=== PATIENT | male | born 1980 | race Caucasian/White ===

== ENCOUNTER 2017-09-01 14:35 | Emergency (ER) | payer MEDICARE, OTHER ==
[2017-09-01 14:40] VITALS: RESP 18
[2017-09-01] MEDS ORDERED: PENICILLIN VK 500MG STARTER 4 TAB BTL PO STA (15:15)
--- NOTE | 2017-09-01 15:16 | ED ---
ENT HPI - General Chief complaint: Dental/Oral Stated complaint: Dental pain Time Seen by Provider: 09/01/17 14:42 Source: patient, RN notes reviewed, old records reviewed Mode of arrival: ambulatory Limitations: no limitations - History of Present Illness Initial comments: This is a 37-year-old male with a history of mental disability. He presents emergency department today with chief complaint of a loose tooth. Patient appears quite unkempt. He has rash over his body. He reports that he was told that that was because the skin over grew as a baby. He is quite odorous. He reports that he lives by himself. He has no family members or friends. He states that he has no doctor. Patient denies any recent fever, chills, shortness of breath, chest pain, back pain, abdominal pain, nausea vomiting, numbness or tingling, dysuria or hematuria, constipation or diarrhea, headaches or visual changes, or any other current symptoms - Related Data Previous Rx's Medication Instructions Recorded Ibuprofen [Motrin] 600 mg PO Q8HR PRN #20 tab 09/01/17 Penicillin V Potassium [Pen Vee K] 500 mg PO QID #40 tablet 09/01/17 amLODIPine [Norvasc] 5 mg PO DAILY #5 tab 09/01/17 Allergies Allergy/AdvReac Type Severity Reaction Status Date / Time No Known Allergies Allergy Verified 09/01/17 15:03 Review of Systems ROS Statement: Those systems with pertinent positive or pertinent negative responses have been documented in the HPI. ROS Other: All systems not noted in ROS Statement are negative. Past Medical History Past Medical History: No Reported History History of Any Multi-Drug Resistant Organisms: None Reported Past Surgical History: No Surgical Hx Reported Past Psychological History: No Psychological Hx Reported Smoking Status: Never smoker Past Alcohol Use History: None Reported Past Drug Use History: None Reported General Exam - General Exam Comments Initial Comments: Patient is a 37-year-old male. Patient is alert and oriented. Does not appear to be in any acute distress. Limitations: no limitations General appearance: alert, in no apparent distress, obese Head exam: Present: atraumatic, normocephalic, normal inspection Eye exam: Present: normal appearance, PERRL, EOMI. Absent: scleral icterus, conjunctival injection, periorbital swelling ENT exam: Present: normal exam, mucous membranes moist. Absent: normal oropharynx (Patient has very poor dentition. Reproducible tenderness over tooth #6. He appears to have his deciduous teeth behind his adult teeth. Multiple dental caries.) Neck exam: Present: normal inspection. Absent: tenderness, meningismus, lymphadenopathy Extremities exam: Present: normal inspection, full ROM, normal capillary refill. Absent: tenderness, pedal edema, joint swelling, calf tenderness Back exam: Present: normal inspection Neurological exam: Present: alert, oriented X3, CN II-XII intact Psychiatric exam: Present: normal affect, normal mood Skin exam: Present: warm, dry, intact, normal color, rash (Erythematous rash over her chest recent abdomen with excoriations.) Course Vital Signs 09/01/17 14:36 Temperature 97.2 F L Pulse Rate 87 Respiratory 18 Rate Blood Pressure 187/112 O2 Sat by Pulse 98 Oximetry Medical Decision Making - Medical Decision Making 37-year-old male presents to light and dental pain. He has not seen a dentist. He has evidence of very poor dentition. He is quite unkempt. Malodorous. He does not have a doctor. Erosive elevated blood pressure, Patient given 1 mg of clonidine. Patient does have reproducible tenderness over the tooth #6 and 7. No drainable abscess noted at this time. His hydration we'll put the Patient on antibiotics for dental infection. I discussed that he spoke with dentist. Given a referral for dental clinic. All questions answered return parameters were discussed. Disposition Clinical Impression: Dental infection, Hypertension Disposition: HOME SELF-CARE Condition: Good Instructions: Toothache (ED), Hypertension (ED) Additional Instructions: Patient advised to follow-up with the dental clinic. Take antibiotics as prescribed. Return to emergency department if any alarming signs or symptoms occur. Take Motrin or Tylenol for pain. Prescriptions: amLODIPine [Norvasc] 5 mg PO DAILY #5 tab Ibuprofen [Motrin] 600 mg PO Q8HR PRN #20 tab PRN Reason: Pain Penicillin V Potassium [Pen Vee K] 500 mg PO QID #40 tablet Is patient prescribed a controlled substance at d/c from ED?: No When asked, does pt state using other controlled substances?: No If prescribed controlled substance>3 days was MAPS reviewed?: No If opioid is for acute pain is fill amount 7 days or less?: No If Rx opioid, was Start Talking consent form obtained?: No Referrals: None,Stated [Primary Care Provider] - 1-2 days Luisa Walters MD [STAFF PHYSICIAN] - 1-2 days Time of Disposition: 15:13
[2017-09-01] MEDS: cloNIDine HCL 0.1 MG TAB PO STA ×2 (15:24→15:26)
[2017-09-01] MEDS ORDERED: cloNIDine HCL 0.1 MG TAB PO STA (15:26)
[2017-09-01 16:06] VITALS: BP 158/98; PULSE 90; TEMP 98
== END 2017-09-01 16:09 | disposition home or self-care (01) ==
LOC: EC 14:35
DX: K04.7 Periapical abscess without sinus (principal); I10 Essential (primary) hypertension; K02.9 Dental caries, unspecified; R21 Rash and other nonspecific skin eruption; R46.0 Very low level of personal hygiene; E66.9 Obesity, unspecified; Z68.41 Body mass index [BMI] 40.0-44.9, adult
CPT/HCPCS: 99283

== ENCOUNTER 2019-08-15 22:21 | Emergency (ER) | payer MEDICARE, OTHER ==
[2019-08-15 22:28] VITALS: BP 171/98; TEMP 98.6
[2019-08-15] MEDS ORDERED: LIDOCAINE 1% INJ 10MG/ML (20 ML MDV) SQ ONE (22:45)
[2019-08-15] MEDS ORDERED: IBUPROFEN 600 MG TAB PO STA (22:46)
[2019-08-15] MEDS ORDERED: DIPH,PERTUS(ACELL)TETVAC-LF 0.5 ML VIAL IM ONE (22:46)
--- NOTE | 2019-08-15 23:08 | ED ---
Wound/Laceration HPI - General Chief Complaint: Wound/Laceration Stated Complaint: Finger Laceration Time Seen by Provider: 08/15/19 22:31 Source: patient, family Mode of arrival: ambulatory Limitations: no limitations - History of Present Illness Initial Comments: 39-year-old male patient presents to the emergency department today for evaluation of laceration to the right middle finger. Patient states that he was using a brand-new knife from the store when he slipped and cut his finger. He denies any difficulty with range of motion, numbness, or tingling to the finger. He is unsure when his last tetanus vaccine was administered. Denies any other injuries.Patient denies any headache, neck pain, back pain, chest pain, shortness of breath, dizziness, weakness, abdominal pain, nausea, vomiting, or difficulties with bowel movements or urination. - Related Data Previous Rx's Medication Instructions Recorded Ibuprofen [Motrin] 600 mg PO Q8HR PRN #20 tab 09/01/17 Penicillin V Potassium [Pen Vee K] 500 mg PO QID #40 tablet 09/01/17 amLODIPine [Norvasc] 5 mg PO DAILY #5 tab 09/01/17 Allergies Allergy/AdvReac Type Severity Reaction Status Date / Time No Known Allergies Allergy Verified 08/15/19 22:27 Review of Systems ROS Statement: Those systems with pertinent positive or pertinent negative responses have been documented in the HPI. ROS Other: All systems not noted in ROS Statement are negative. Past Medical History Past Medical History: No Reported History Additional Past Medical History / Comment(s): developmentally delayed History of Any Multi-Drug Resistant Organisms: None Reported Past Surgical History: No Surgical Hx Reported Past Psychological History: No Psychological Hx Reported Smoking Status: Never smoker Past Alcohol Use History: None Reported Past Drug Use History: None Reported General Exam Limitations: no limitations General appearance: alert, in no apparent distress, other (Physical well- developed, well-nourished adult male patient in no acute distress. Vital signs upon presentation temperature 98.6F, pulse 111, respirations 20, blood pressure 171/98, pulse ox 97% on room air.) Respiratory exam: Present: normal lung sounds bilaterally. Absent: respiratory distress, wheezes, rales, rhonchi, stridor Cardiovascular Exam: Present: regular rate, normal rhythm, normal heart sounds. Absent: systolic murmur, diastolic murmur, rubs, gallop, clicks Extremities exam: Present: full ROM, normal capillary refill, other (3 cm laceration noted to the lateral aspect of the right distal middle finger. Bleeding controlled. Skin is otherwise pink, warm, dry. Cap refills less than 3 seconds. Radial pulses are 2+. Patient has full range of motion of the finger with and without resistance.). Absent: normal inspection, tenderness, pedal edema, joint swelling, calf tenderness Neurological exam: Present: alert, oriented X3, CN II-XII intact Psychiatric exam: Present: normal affect, normal mood Skin exam: Present: warm, dry, intact, normal color. Absent: rash Course Vital Signs 08/15/19 08/15/19 22:22 23:08 Temperature 98.6 F Pulse Rate 111 H 86 Respiratory 20 17 Rate Blood Pressure 171/98 O2 Sat by Pulse 97 99 Oximetry Procedures - Laceration Laceration #1 Consent Obtained: verbal consent Indication: laceration Site: hand (Right middle finger) Size (cm): 3 Depth: simple, single layer Anesthetic Used: lidocaine 1% Anesthesia Technique: local infiltration Amount (mls): 2 Pre-repair: irrigated extensively Type of Sutures: nylon Size of Sutures: 5-0 Number of Sutures: 7 Technique: simple, interrupted Patient Tolerated Procedure: well, no complications Medical Decision Making - Medical Decision Making 39-year-old male patient presents to the emergency department today for evaluation of laceration to the right middle finger. Physical examination did reveal a 3 cm laceration noted to the lateral aspect of the distal right middle finger. Bleeding was controlled. Laceration was repaired as documented. Patient's blood pressure noted to be elevated while in the department. Patient is currently asymptomatic. He'll be discharged with recommendation for follow- up with primary care physician to discuss medication regimen. He is instructed regarding wound care and signs or symptoms of infection. He is instructed to come back in 7 days to have the stitches removed. Return parameters were discussed in detail. He verbalizes understanding and agrees with this plan. Disposition Clinical Impression: Laceration of right middle finger Disposition: HOME SELF-CARE Condition: Good Instructions (If sedation given, give patient instructions): Care For Your Stitches (ED), Finger Laceration (ED), Hypertension (ED) Additional Instructions: Keep wound clean and dry. Cleanse twice daily with warm water and antibacterial soap. Do not submerge the finger in water, showers are okay. Return if you develop redness, swelling, or increased pain to the finger. Return in 7 days to have the stitches taken out. Follow-up with your primary care physician for recheck in 1-2 days. One has been recommended for you, you need to have your blood pressure rechecked. Return to the emergency department immediately for any new, worsening, or concerning symptoms. Is patient prescribed a controlled substance at d/c from ED?: No Referrals: Heydi Tolliver MD [REFERRING] - 1-2 days Time of Disposition: 23:08
[2019-08-15 23:39] VITALS: PULSE 86; RESP 17
== END 2019-08-15 23:50 | disposition home or self-care (01) ==
LOC: EC 22:21
DX: S61.212A Laceration without foreign body of right middle finger without damage to nail, initial encounter (principal); R03.0 Elevated blood-pressure reading, without diagnosis of hypertension; Z23 Encounter for immunization; W26.0XXA Contact with knife, initial encounter; Y93.89 Activity, other specified; Y92.009 Unspecified place in unspecified non-institutional (private) residence as the place of occurrence of the external cause
CPT/HCPCS: 90715; 90471; 99282; 12002; J2001

== ENCOUNTER 2023-03-01 10:48 | Emergency (ER) | payer MEDICARE, OTHER ==
[2023-03-01 11:20] VITALS: TEMP 98.2
--- NOTE | 2023-03-01 11:58 | XR ---
EXAMINATION TYPE: XR finger LT DATE OF EXAM: 03/01/2023 COMPARISON: None HISTORY: Injury fourth left digit swelling TECHNIQUE: 3 views of the fourth and fifth digit images were obtained FINDINGS: No acute fracture or dislocation is evident. Joint spaces are preserved. There is diffuse s oft tissue swelling over the ring finger. Follow-up exam be performed 7 days from acute trauma for continued pain IMPRESSION: 1. Unremarkable fourth digit
[2023-03-01] MEDS ORDERED: IBUPROFEN 800 MG TAB PO STA (12:31)
[2023-03-01] MEDS ORDERED: ACETAMINOPHEN TAB 500 MG TAB PO STA (12:31)
[2023-03-01] MEDS ORDERED: MUPIROCIN 2% OINT 22 GM TUBE TOPICAL ONE (12:38)
--- NOTE | 2023-03-01 12:45 | ED ---
Upper Extremity HPI - General Chief Complaint: Extremity Injury, Upper Stated Complaint: finger swelling Time Seen by Provider: 03/01/23 11:48 Source: patient, RN notes reviewed Mode of arrival: ambulatory Limitations: no limitations - History of Present Illness Initial Comments: This is a 43 year old male who presents to the emergency department for finger pain. States that he injured his left 4th finger yesterday by bumping it on something, and when he woke up it was swollen, red, and painful. Patient is noted to have high blood pressure on arrival. Denies any hx of HTN. Also denies any headaches or visual changes. - Related Data Previous Rx's Medication Instructions Recorded Sulfamethox-Tmp 800-160Mg [Bactrim 1 tab PO Q12HR 7 Days #14 tab 03/01/23 DS 800-160 mg] amLODIPine [Norvasc] 5 mg PO DAILY #30 tab 03/01/23 Allergies Allergy/AdvReac Type Severity Reaction Status Date / Time No Known Allergies Allergy Verified 03/01/23 16:19 Review of Systems ROS Statement: Those systems with pertinent positive or pertinent negative responses have been documented in the HPI. ROS Other: All systems not noted in ROS Statement are negative. Past Medical History Past Medical History: No Reported History Additional Past Medical History / Comment(s): developmentally delayed History of Any Multi-Drug Resistant Organisms: None Reported Past Surgical History: No Surgical Hx Reported Past Psychological History: No Psychological Hx Reported Past Alcohol Use History: None Reported Past Drug Use History: None Reported General Exam Limitations: no limitations General appearance: alert, in no apparent distress Head exam: Present: atraumatic, normocephalic, normal inspection Respiratory exam: Present: normal lung sounds bilaterally. Absent: respiratory distress, wheezes, rales, rhonchi, stridor Cardiovascular Exam: Present: regular rate, normal rhythm, normal heart sounds. Absent: systolic murmur, diastolic murmur, rubs, gallop, clicks Extremities exam: Present: other (Erythema, swelling, and tenderness around the fingernail of the left fourth digit consistent with a paronychia. No bogginess or areas of purulence.) Neurological exam: Present: alert, oriented X3, CN II-XII intact Psychiatric exam: Present: normal affect, normal mood Course Vital Signs 03/01/23 03/01/23 03/01/23 11:09 13:17 14:30 Temperature 98.2 F Pulse Rate 106 H 96 80 Respiratory 18 Rate Blood Pressure 202/134 228/117 172/120 O2 Sat by Pulse 96 Oximetry 03/01/23 03/01/23 03/01/23 15:08 15:20 16:51 Temperature Pulse Rate 85 80 72 Respiratory 20 Rate Blood Pressure 183/130 177/121 187/128 O2 Sat by Pulse 97 Oximetry 03/01/23 03/01/23 18:07 18:57 Temperature Pulse Rate 80 84 Respiratory 20 Rate Blood Pressure 192/108 156/105 O2 Sat by Pulse 96 Oximetry Medical Decision Making - Medical Decision Making This is a 43 year old male who presents to the emergency department for finger pain. Was pt. sent in by a medical professional or institution? @ -No Did you speak to anyone other than the patient for history? @ -No Did you review nursing and triage notes? @ -Yes, and I agree, it is accurate with regards to the patient's symptoms. Were old charts reviewed? @ -No Differential Diagnosis? @ -Differential Musculoskeletal Muscular strain, contusion, ligament sprain, fracture, arthritis, septic arthritis, bursitis, cellulitis, muscle spasm, nerve compression, DVT, arterial occlusion, herpes zoster, electrolyte abnormality, tumor.... This is not meant to be in all inclusive list EKG interpreted by me (3pts min.)? @ -EKG interpreted by me demonstrating the following: Sinus rhythm. Ventricular rate 71 BPM, DC interval 149 ms, QRS duration 101 ms, QTc 437 ms. X-rays interpreted by me (1pt min.)? @ -X-ray of the left 4th finger obtained. My interpretation identifies no acute fractures. CT interpreted by me (1pt min.)? @ -Not obtained U/S interpreted by me (1pt. min.)? @ -Not obtained What testing was considered but not performed? (CT, X-rays, U/S, labs)? Why? @ -None What meds were considered but not given? Why? @ -None Did you discuss the management of the patient with other professionals? @ -No Did you reconcile home meds? @ -No Was smoking cessation discussed for >3mins.? @ -No Was critical care preformed (if so, how long)? @ -No Were there social determinants of health that impacted care today? How? (Homelessness, low income, unemployed, alcoholism, drug addiction, transportation, low edu. Level, literacy, decrease access to med. care, prison, rehab)? @ -Developmental delay, impacting his ability to care for himself and follow up on health concerns. Was there de-escalation of care discussed even if they declined? (Discuss DNR or withdrawal of care, Hospice)? @ -No What co-morbidities impacted this encounter? (DM, HTN, Smoking, COPD, CAD, Cancer, CVA, Hep., AIDS, mental health diagnosis, sleep apnea, morbid obesity)? @ -Developmental delay, morbid obesity Was patient admitted / discharged? @ -Discharged. Physical examination consistent with a paronychia. There were no areas that could be easily drained, and patient states that he would decline th is regardless. He was noted to be hypertensive on arrival with a BP of 228/117. Patient has no hx of HTN and takes no medication. He was initially refusing an IV, so he was given clonidine for his BP, which was not effective. He was then agreeable to an IV and further workup. Lab work obtained demonstrating no acute findings. He was initially given Labetalol with no significant improvement in BP. Hydralazine was then administered with improvement in BP. At the time of discharge his BP was 156/105. Patient was very disheveled with a foul odor. He lives alone and takes care of himself. Patient clearly has poor understanding of his health and there is concern about his ability to make his own decisions and care for himself. He also has no primary care provider. Discussed with the patient that given the severity of his blood pressure elevation, he needs to follow up with a PCP and he is at risk for heart attacks and strokes if this goes untreated. This was discussed with our case management associate, who was able to make the patient an appointment for 03/07/[address] Ivy a local primary care provid er. She also called APS given the concern for the patient being on his own and being unable to manage his health. He was given a prescription for amlodipine to be taken once daily for management of the BP. He was given a bottle of mupirocin ointment in the emergency department and a prescription for Bactrim was provided for management of the paronychia. Undiagnosed new problem with uncertain prognosis? @ -None Drug Therapy requiring intensive monitoring for toxicity (Heparin, Nitro, Insulin, Cardizem)? @ -None Were any procedures done? @ -None Diagnosis/symptom? @ -Hypertension, paronychia Acute, or Chronic, or Acute on Chronic? @ -Acute Uncomplicated (without systemic symptoms) or Complicated (systemic symptoms)? @ -Uncomplicated Side effects of treatment? @ -None Exacerbation, Progression, or Severe Exacerbation] @ -Not applicable Poses a threat to life or bodily function? @ -The hypertension can be life threatening if it is not under control, in that it can lead to heart attacks and strokes. Return precautions reviewed in depth, the patient is instructed to return to the emergency department with any new, worsening, or concerning symptoms. Patient verbalized understanding. This case was discussed in detail with the attending ED physician, Dr. Gregory. Presentation, findings, and treatment plan discussed in detail as well. - Lab Data Result diagrams: 03/01/23 15:41 03/01/23 15:41 Lab Results 03/01/23 03/01/23 Range/Units 15:41 15:41 WBC 8.5 (3.8-10.6) k/uL RBC 4.68 (4.30-5.90) m/uL Hgb 13.4 (13.0-17.5) gm/dL Hct 40.1 (39.0-53.0) % MCV 85.7 (80.0-100.0) fL MCH 28.6 (25.0-35.0) pg MCHC 33.3 (31.0-37.0) g/dL RDW 13.8 (11.5-15.5) % Plt Count 205 (150-450) k/uL MPV 8.6 Neutrophils % 64 % Lymphocytes % 24 % Monocytes % 5 % Eosinophils % 3 % Basophils % 1 % Neutrophils # 5.5 (1.3-7.7) k/uL Lymphocytes # 2.0 (1.0-4.8) k/uL Monocytes # 0.5 (0-1.0) k/uL Eosinophils # 0.3 (0-0.7) k/uL Basophils # 0.0 (0-0.2) k/uL Sodium 138 (137-145) mmol/L Potassium 4.1 (3.5-5.1) mmol/L Chloride 104 (98-107) mmol/L Carbon Dioxide 24 (22-30) mmol/L Anion Gap 10 mmol/L BUN 11 (9-20) mg/dL Creatinine 0.96 (0.66-1.25) mg/dL Est GFR (CKD-EPI)AfAm >90 (>60 ml/min/1.73 sqM) Est GFR (CKD-EPI)NonAf >90 (>60 ml/min/1.73 sqM) Glucose 109 H (74-99) mg/dL Calcium 8.4 (8.4-10.2) mg/dL Total Bilirubin 0.7 (0.2-1.3) mg/dL AST 40 (17-59) U/L ALT 34 (4-49) U/L Alkaline Phosphatase 52 (38-126) U/L Total Protein 7.3 (6.3-8.2) g/dL Albumin 3.9 (3.5-5.0) g/dL TSH 2.180 (0.465-4.680) mIU/L - Radiology Data Radiology results: report reviewed, image reviewed Disposition Clinical Impression: Paronychia, Hypertension Disposition: HOME SELF-CARE Instructions (If sedation given, give patient instructions): Paronychia (ED), Hypertension (ED) Additional Instructions: Return to the emergency department with any new, worsening, or concerning symptoms. Take the Bactrim as prescribed for 7 days. Apply the antibiotic ointment provided to the nail 2-3x daily for about a week. Begin taking the amlodipine daily for management of your high blood pressure. Reduce your sodium intake. We made you an appointment with a primary care provider for 03/07/23 at 8:45 am. Make sure you follow up as scheduled, you will need your blood pressure rechecked. Prescriptions: Sulfamethox-Tmp 800-160Mg [Bactrim DS 800-160 mg] 1 tab PO Q12HR 7 Days #14 tab amLODIPine [Norvasc] 5 mg PO DAILY #30 tab Is patient prescribed a controlled substance at d/c from ED?: No Referrals: Biju Ramirez MD [REFERRING] - 03/07/23 8:45 am (Bring your insurance cards and identification.)
[2023-03-01] MEDS ORDERED: cloNIDine HCL 0.2 MG TAB PO STA (13:31)
[2023-03-01] MEDS ORDERED: cloNIDine HCL 0.1 MG TAB PO STA (14:31)
[2023-03-01] MEDS ORDERED: LABETALOL 5 MG/ML VIAL MDV IVP STA ×2 (15:27→16:44)
[2023-03-01 16:21] LABS: ALT 34 U/L (4-49); AST 40 U/L (17-59); African American GFR (CKD) >90 (>60 ml/min/1.73 sqM); Albumin 3.9 g/dL (3.5-5.0); Alkaline Phosphatase 52 U/L (38-126); Anion Gap 10 mmol/L; Blood Urea Nitrogen 11 mg/dL (9-20); Calcium 8.4 mg/dL (8.4-10.2); Carbon Dioxide 24 mmol/L (22-30); Chloride 104 mmol/L (98-107); Glucose 109 mg/dL (74-99); Non-African American GFR(CKD) >90 (>60 ml/min/1.73 sqM); Potassium 4.1 mmol/L (3.5-5.1); Sodium 138 mmol/L (137-145); Total Bilirubin 0.7 mg/dL (0.2-1.3); Total Protein 7.3 g/dL (6.3-8.2)
[2023-03-01 17:11] VITALS: RESP 20
[2023-03-01] MEDS ORDERED: hydrALAZINE HCL 20 MG/ML 1 ML VIAL IVP STA (18:08)
[2023-03-01] MEDS ORDERED: amLODIPine 5 MG TAB PO STA (18:11)
[2023-03-01 18:33] LABS: Basophils % (A) 1 %; Eosinophils # (A) 0.3 k/uL (0-0.7); Eosinophils % (A) 3 %; HCT 40.1 % (39.0-53.0); HGB 13.4 gm/dL (13.0-17.5); Lymphocytes % (A) 24 %; MCH 28.6 pg (25.0-35.0); MCHC 33.3 g/dL (31.0-37.0); MCV 85.7 fL (80.0-100.0); Mean Platelet Volume 8.6; Monocytes # (A) 0.5 k/uL (0-1.0); Monocytes % (A) 5 %; Neutrophils # (A) 5.5 k/uL (1.3-7.7); Neutrophils % (A) 64 %; Platelet Count 205 k/uL (150-450); RBC 4.68 m/uL (4.30-5.90); RDW 13.8 % (11.5-15.5); WBC 8.5 k/uL (3.8-10.6)
[2023-03-01 18:59] VITALS: BP 156/105; PULSE 84
[2023-03-01] MEDS ORDERED: SULFAMETH-TMP DS STARTER PACK 2 TAB BTL PO STA (19:04)
== END 2023-03-01 19:25 | disposition home or self-care (01) ==
LOC: EC 10:48
DX: L03.012 Cellulitis of left finger (principal); I10 Essential (primary) hypertension; E66.01 Morbid (severe) obesity due to excess calories; Z68.41 Body mass index [BMI] 40.0-44.9, adult
CPT/HCPCS: 36415; 80053; 84443; 85025; 73140; 99284; 96374; 96375; 96376; J0360; J1920